=== PATIENT | male | born 1980 | race Caucasian/White ===

== ENCOUNTER 2020-08-20 11:21 | Emergency (ER) | payer OTHER ==
[~2020-08-20] VITALS: Ht 170.2 cm; Wt 95.3 kg
[2020-08-20] MEDS ORDERED: ROBAXIN 750 MG750 MG PO (12:41)
[2020-08-20] MEDS ORDERED: MEDROLDOSEPACK PO (12:52)
[2020-08-20 12:58] VITALS: BP 127/78
== END 2020-08-20 12:58 | disposition home or self-care (01) ==
LOC: ER 11:21
DX: S16.1XXA Strain of muscle, fascia and tendon at neck level, initial encounter (principal); M54.12 Radiculopathy, cervical region; S00.01XA Abrasion of scalp, initial encounter; Z88.6 Allergy status to analgesic agent; Z88.8 Allergy status to other drugs, medicaments and biological substances; Y04.2XXA Assault by strike against or bumped into by another person, initial encounter; Y93.89 Activity, other specified; Y92.89 Other specified places as the place of occurrence of the external cause; Y99.8 Other external cause status